=== PATIENT | female | born 1980 | race Caucasian/White ===

== ENCOUNTER 2017-12-05 20:02 | Emergency (ER) | payer BC, SELFPAY ==
[2017-12-05 20:10] VITALS: BP 132/75; PULSE 69; RESP 13; TEMP 37.1; O2SAT 100
[2017-12-05 20:16] VITALS: PULSE 93; RESP 13; O2SAT 100
--- NOTE | 2017-12-05 20:35 | DI.RAD_ITS ---
SYMPTOM/DIAGNOSIS: LEFT CHEST TIGHTNESS PA AND LATERAL CHEST: The heart is normal in size. The lungs are clear. The mediastinal structures and pleura appear intact. CONCLUSION: Normal chest.
--- NOTE | 2017-12-05 20:35 | W.ED.GENAD ---
Discharge Plan Disposition Patient Disposition: HOME Condition: Good Discharge Details Chief Complaint: Palpitatns Clinical Impression: RBBB, Chest pain, Anxiety Primary Care Provider: Lizett Juárez ED Provider: Willie Patel Home Meds and New Rx's Prescriptions: No Action ibuprofen 200 MG tablet 600 mg PO PRN PRNRF: 0 Discharge Instructions Instructions: Chest Pain (ED) Additional Instructions: Please follow-up with your primary care provider as soon as possible for reassessment. Please discuss with them your slightly elevated thyroid level. Please follow-up with your radiation oncologist. If you notice any worsening of your symptoms, or any new symptoms such as vomiting, diarrhea, fever, chills, shortness of breath, chest pain, numbness, weakness, or fainting , please return immediately to the emergency department for reevaluation. Please follow up with your primary care provider as soon as possible for reassessment and reevaluation. As always, it was a pleasure participating in your medical care today. Referrals: Lizett Juárez [Primary Care Provider] - Discharge Data Discharge Date/Time-TO BE ENTERED AT DEPARTURE: 12/05/17 23:10 Medical Decision Making This is a very pleasant 36-year-old female who presents for evaluation of mild palpitations, and then subsequent mild tightness in her chest. There is no pleuritic component. She has no red flags for pulmonary embolism. Her only cardiac risk factor is her father's family history, however she is extremely healthy, never smoked, shows no obesity, and has no other cardiac risk factors whatsoever. Physical exam demonstrates a very anxious young woman who is tearful, and shows notable anxiety. She denies any homicidal or suicidal ideations. Physical exam shows no other abnormalities. Laboratory workup is benign. Troponin is negative. TSH is slightly elevated at 5.83, which we have recommended that she follow-up with her primary care provider. EKG shows a right bundle branch block, negative for Scarbossa criterion, no evidence of ST elevations or depressions. The patient being very low risk for cardiac etiology, having a heart score less than 3, demonstrating no red flags or risk factors for pulmonary embolism, I feel that she is safe for discharge home. Her initial palpitations may have been secondary to exercise, or idiopathic. However I think her subsequent symptoms most likely brought on and worsened by an anxiety component. We did give a small dose of Ativan here, and this significantly improve the patient's disposition. After a long discussion and conversation with the patient and her , through shared decision making process I feel that she can be safely discharged home with close follow-up with her PCP. We have recommended outpatient follow-up for her right bundle branch block with cardiology, as well as her primary care provider. We discussed the importance of follow-up with counselors for anxiety treatment techniques. We discussed red flags which to return the patient understands. I have extensively reviewed the treatment plan and discharge instructions with the patient and their family. I have addressed all patient concerns at this time. The patient and family was made aware of what symptoms to monitor for that would warrant a return to the emergency department. Discussed the plan with the patient and family, they demonstrate verbal understanding and agreement with our assessment and plan at this time. EKG 20: 08 Rate 74, intervals normal, sinus rhythm with an incomplete right bundle branch block with an inverted T waves in V1 and V2, no ST elevations or depressions. No Q waves Chest x-ray per virtual radiology no acute cardiopulmonary process. HPI General Date/Time Provider Initiated Documentation: 12/05/17 20:34. HPI Narrative: This is a 36-year-old female with no past medical history except for who exercises regularly, performs regular marathons, presents today for chest pain. Patient states that she was running today when she developed mild palpitations for 1 minute while running, she subsequently developed very mild tightness in her chest and throat, she states that the more and more she dwelt upon it, the worse her symptoms got. She began to feel very anxious, overwhelmed, and thought she may . This entire episode lasted 3-4 minutes, she came with her to the hospital for further evaluation. She denies any pain in her arms or neck. She states that the symptoms eventually went away on their own. She denies any current pleuritic chest pain, shortness of breath, heaviness or weight on her chest, numbness, tingling, or weakness. Denies PE risk factors such as recent long car rides, immobilization, recent surgery, prior history of DVT or PE, family history of PE or DVT, morbid obesity, exogenous estrogen and smoking, hemoptysis, history of cancer. She denies any history of hypertension, high cholesterol, or diabetes. She has never smoked. She states that her father recently from a myocardial infarction this is been 1 of her main concerns. She states that she has had symptoms like this once in the past, became very anxious, he had worked up secondary to her fear of something concerning going on. She does have a known history of a right bundle branch block for which she has been seen and assessed by her PCP. She has no other complaints at this time. She denies any IV or illicit drug use. Related Data Home Medications Medication Instructions Recorded Confirmed ibuprofen 600 mg PO PRN PRN 05/16/15 12/05/17 Allergies Allergy/AdvReac Type Severity Reaction Status Date / Time Penicillins Allergy Unknown Unverified 12/05/17 20:14 Sulfa (Sulfonamide Allergy rash and Unverified 12/05/17 20:14 Antibiotics) tacycardia General Stated Complaint: Palpitatns PACO: 3 Review of Systems Review of Systems 10 point review of systems was performed, pertinent positives and negatives are noted in the history of present illness. REPLACED BY [facility] Social History Smoking/Tobacco Use Status: Never Exam Narrative Exam Narrative: 1.Const: Well-nourished, Well-developed, appearing stated age 2.Eyes: PERRL, no conjunctival injection, and symmetrical lids. 3.ENT: Atraumatic external nose and ears. Moist MM. Neck: Symmetric, trachea midline, No thyromegaly. 4.CVS: +S1/S2, No murmurs or gallops. Peripheral pulses 2+ and equal in all extremities. Brisk capillary refill in all extremities. 5.RESP: Unlabored respiratory effort. Clear to auscultation bilaterally. No wheezes rales or rhonchi 6.GI: Soft, Nontender/Nondistended, No hepatosplenomegaly. No guarding or rebound. 7.MSK: Normocephalic/Atraumatic, Extremities w/o deformity or ttp No cyanosis or clubbing, Normal movement of all extremities. No calf tenderness. 8.Skin: Warm, Dry. No rashes or lesions. 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 Sensation grossly intact, no focal neurologic deficits. 10.Psych: (AAO) x3. Appropriate mood and affect Course Vital Signs Temperature 37.1 C 12/05/17 20:10 Pulse 69 12/05/17 20:10 Respiratory Rate 13 12/05/17 20:10 Blood Pressure 132/75 12/05/17 20:10 Pulse Oximetry 100 12/05/17 20:10 Temperature 37.1 C 12/05/17 20:10 Temperature Source Skin 12/05/17 20:10 Pulse 69 12/05/17 20:10 Pulse 93 H 12/05/17 20:16 Respiratory Rate 13 12/05/17 20:16 Respiratory Effort 12/05/17 20:12 Blood Pressure 132/75 12/05/17 20:10 Pulse Oximetry 100 12/05/17 20:16 Oxygen Delivery Method Room Air 12/05/17 20:10 Oxygen Flow Rate 0 12/05/17 20:10 Pain Level 0 12/05/17 20:10
[2017-12-05] MEDS: LORazepam 2 MG/ML VIAL 0.5 MG IVP (20:52)
[2017-12-05] MEDS: Aspirin 81 MG CHEW 324 MG CH (20:52)
[2017-12-05 20:59] LABS: Abs Immature Grans 0.02 k/cumm (0.0-0.09); Absolute Basophil Count 0.06 k/cumm (0.0-0.2); Absolute Eosinophil Count 0.18 k/cumm (0.0-0.7); Absolute Lymphocyte Count 1.79 k/cumm (1.2-3.4); Absolute Monocyte Count 0.69 k/cumm (0.11-0.7); Absolute Neutrophil Count 6.66 k/cumm (1.2-6.7); Basophils % 0.6; Eosinophils % 1.9; HCT 36.6 % (36.0-46.0); HGB 12.4 g/dL (12.0-15.5); Immature Grans % 0.2; Mean Corp. HGB Concentration 33.9 g/dL (32.0-36.0); Mean Corpuscular Hemoglobin 28.7 pg (27.0-33.0); Mean Corpuscular Volume 84.7 fL (80-95); Mean Platelet Volume 10.4 fL (8.0-11.0); Monocytes % 7.3; Platelet Count 284 x1000/uL (130-400); RBC 4.32 m/cumm (4.00-5.20); RBC Distribution Width 12.6 % (11.7-14.6)
[2017-12-05 21:54] LABS: ALT 28 U/L (12-78); AST 19 U/L (15-37); Alkaline Phosphatase 82 U/L (46-116); Anion Gap 6.5 mmol/L (3-11); BUN 20 mg/dL (7-18); Bilirubin, Total 0.3 mg/dL (0.2-1.0); CO2 29.5 mmol/L (21.0-32.0); CREATININE 1.03 mg/dL (0.55-1.02); Chloride 105 mmol/L (98-107); Glucose 106 mg/dL (70-100); Potassium 4.3 mmol/L (3.5-5.1); Sodium 141 mmol/L (136-145); TSH 5.83 uIU/mL (0.358-3.74); Total Protein 6.8 g/dL (6.4-8.2)
[2017-12-05 21:56] LABS: Troponin I < 0.02 ng/mL (0.00-0.06)
--- NOTE | 2017-12-05 21:58 | DI.VRAD_ITS ---
EXAM: XR Chest, 2 Views CLINICAL HISTORY: 36 years old, female; Signs and symptoms; Shortness of breath TECHNIQUE: Frontal and lateral views of the chest. COMPARISON: CR CHEST 2 VIEWS PA,LAT 08/12/2016 3:34 AM FINDINGS: Lungs: Benign calcified granuloma, right lung base, versus benign right breast calcification. No airspace consolidation. Pleural space: No focal pathology. No pneumothorax. Heart: No focal pathology. No cardiomegaly. Mediastinum: Unremarkable. Bones/joints: Unremarkable. IMPRESSION: No acute cardiopulmonary pathology. Dictated and Authenticated by: Brianna Turcios MD. Ordering:JORDAN FISCHER MD
--- NOTE | 2017-12-06 01:00 | ED.GENADUL_ITS ---
Discharge Plan Disposition Patient Disposition: HOME Condition: Good Discharge Details Chief Complaint: Palpitatns Clinical Impression: RBBB, Chest pain, Anxiety Primary Care Provider: Lizett Juárez ED Provider: Willie Patel Home Meds and New Rx's Prescriptions: No Action ibuprofen 200 MG tablet 600 mg PO PRN PRNRF: 0 Discharge Instructions Instructions: Chest Pain (ED) Additional Instructions: Please follow-up with your primary care provider as soon as possible for reassessment. Please discuss with them your slightly elevated thyroid level. Please follow-up with your bladder changer. If you notice any worsening of your symptoms, or any new symptoms such as vomiting, diarrhea, fever, chills, shortness of breath, chest pain, numbness, weakness, or fainting , please return immediately to the emergency department for reevaluation. Please follow up with your primary care provider as soon as possible for reassessment and reevaluation. As always, it was a pleasure participating in your medical care today. Referrals: Lizett Juárez [Primary Care Provider] - Discharge Data Discharge Date/Time-TO BE ENTERED AT DEPARTURE: 12/05/17 23:10 Medical Decision Making This is a very pleasant 36-year-old female who presents for evaluation of mild palpitations, and then subsequent mild tightness in her chest. There is no pleuritic component. She has no red flags for pulmonary embolism. Her only cardiac risk factor is her father's family history, however she is extremely healthy, never smoked, shows no obesity, and has no other cardiac risk factors whatsoever. Physical exam demonstrates a very anxious young woman who is tearful, and shows notable anxiety. She denies any homicidal or suicidal ideations. Physical exam shows no other abnormalities. Laboratory workup is benign. Troponin is negative. TSH is slightly elevated at 5.83, which we have recommended that she follow-up with her primary care provider. EKG shows a right bundle branch block, negative for Scarbossa criterion, no evidence of ST elevations or depressions. The patient being very low risk for cardiac etiology, having a heart score less than 3, demonstrating no red flags or risk factors for pulmonary embolism, I feel that she is safe for discharge home. Her initial palpitations may have been secondary to exercise, or idiopathic. However I think her subsequent symptoms most likely brought on and worsened by an anxiety component. We did give a small dose of Ativan here, and this significantly improve the patient's disposition. After a long discussion and conversation with the patient and her , through shared decision making process I feel that she can be safely discharged home with close follow-up with her PCP. We have recommended outpatient follow-up for her right bundle branch block with cardiology, as well as her primary care provider. We discussed the importance of follow-up with counselors for anxiety treatment techniques. We discussed red flags which to return the patient understands. I have extensively reviewed the treatment plan and discharge instructions with the patient and their family. I have addressed all patient concerns at this time. The patient and family was made aware of what symptoms to monitor for that would warrant a return to the emergency department. Discussed the plan with the patient and family, they demonstrate verbal understanding and agreement with our assessment and plan at this time. EKG 20: 08 Rate 74, intervals normal, sinus rhythm with an incomplete right bundle branch block with an inverted T waves in V1 and V2, no ST elevations or depressions. No Q waves Chest x-ray per virtual radiology no acute cardiopulmonary process. HPI General Date/Time Provider Initiated Documentation: 12/05/17 20:34 . HPI Narrative: This is a 36-year-old female with no past medical history except for who exercises regularly, performs regular marathons , presents today for chest pain. Patient states that she was running today when she developed mild palpitations for 1 minute while running, she subsequently developed very mild tightness in her chest and throat, she states that the more and more she dwelt upon it, the worse her symptoms got. She began to feel very anxious, overwhelmed, and thought she may . This entire episode lasted 3-4 minutes, she came with her to the hospital for further evaluation. She denies any pain in her arms or neck. She states that the symptoms eventually went away on their own. She denies any current pleuritic chest pain, shortness of breath, heaviness or weight on her chest, numbness, tingling, or weakness. Denies PE risk factors such as recent long car rides, immobilization, recent surgery, prior history of DVT or PE, family history of PE or DVT, morbid obesity, exogenous estrogen and smoking, hemoptysis , history of cancer. She denies any history of hypertension, high cholesterol, or diabetes. She has never smoked. She states that her father recently from a myocardial infarction this is been 1 of her main concerns. She states that she has had symptoms like this once in the past, became very anxious , he had worked up secondary to her fear of something concerning going on. She does have a known history of a right bundle branch block for which she has been seen and assessed by her PCP. She has no other complaints at this time. She denies any IV or illicit drug use. Related Data Home Medications Medication Instructions Recorded Confirmed ibuprofen 600 mg PO PRN PRN 05/16/15 12/05/17 Allergies Allergy/AdvReac Type Severity Reaction Status Date / Time Penicillins Allergy Unknown Unverified 12/05/17 20:14 Sulfa (Sulfonamide Allergy rash and Unverified 12/05/17 20:14 Antibiotics) tacycardia General Stated Complaint: Palpitatns PACO: 3 Review of Systems Review of Systems 10 point review of systems was performed, pertinent positives and negatives are noted in the history of present illness. [facility] Social History Smoking/Tobacco Use Status: Never Exam Narrative Exam Narrative: 1.Const: Well-nourished, Well-developed, appearing stated age 2.Eyes: PERRL, no conjunctival injection, and symmetrical lids. 3.ENT: Atraumatic external nose and ears. Moist MM. Neck: Symmetric, trachea midline, No thyromegaly. 4.CVS: +S1/S2, No murmurs or gallops. Peripheral pulses 2+ and equal in all extremities. Brisk capillary refill in all extremities. 5.RESP: Unlabored respiratory effort. Clear to auscultation bilaterally. No wheezes rales or rhonchi 6.GI: Soft, Nontender/Nondistended, No hepatosplenomegaly. No guarding or rebound. 7.MSK: Normocephalic/Atraumatic, Extremities w/o deformity or ttp No cyanosis or clubbing, Normal movement of all extremities. No calf tenderness. 8.Skin: Warm, Dry. No rashes or lesions. 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 Sensation grossly intact, no focal neurologic deficits. 10.Psych: (AAO) x3. Appropriate mood and affect Course Vital Signs Temperature 37.1 C 12/05/17 20:10 Pulse 69 12/05/17 20:10 Respiratory Rate 13 12/05/17 20:10 Blood Pressure 132/75 12/05/17 20:10 Pulse Oximetry 100 12/05/17 20:10 Temperature 37.1 C 12/05/17 20:10 Temperature Source Skin 12/05/17 20:10 Pulse 69 12/05/17 20:10 Pulse 93 H 12/05/17 20:16 Respiratory Rate 13 12/05/17 20:16 Respiratory Effort 12/05/17 20:12 Blood Pressure 132/75 12/05/17 20:10 Pulse Oximetry 100 12/05/17 20:16 Oxygen Delivery Method Room Air 12/05/17 20:10 Oxygen Flow Rate 0 12/05/17 20:10 Pain Level 0 12/05/17 20:10
--- NOTE | 2017-12-06 14:24 | PDOC.ERCMPRO ---
Care Management Progress Note 12/06/17-Pt seen for chest pain and palpitations by Dr. Fermin Patel. Faxed f/u referral to Cardiology.
== END 2017-12-05 23:10 | disposition home or self-care (01) ==
PROVIDERS: Emergency Provider Student in an Organized Health Care Education/Training Program; PCP Family Medicine
DX: I45.10 Unspecified right bundle-branch block (principal); F41.9 Anxiety disorder, unspecified; R07.9 Chest pain, unspecified
CPT/HCPCS: 36415; 80053; 93005; 96374; 99285; 71046; 84443; 84484; 85025; 93010; 99284; J2060

== ENCOUNTER 2018-03-29 01:53 | Outpatient (CLI) | payer BC, SELFPAY | END 2018-03-29 02:13 | PROVIDERS: PCP Family Medicine; Visit Provider Student in an Organized Health Care Education/Training Program | DX: R00.2 Palpitations (principal) ==

== ENCOUNTER 2018-07-20 16:19 | Emergency (ER) | payer BC, SELFPAY ==
[2018-07-20 16:22] VITALS: BP 140/77; PULSE 66; RESP 20; TEMP 36.8; O2SAT 100
[2018-07-20 16:28] VITALS: RESP 20
--- NOTE | 2018-07-20 17:05 | W.ED.GENAD ---
Discharge Plan Disposition Patient Disposition: HOME Condition: Good Discharge Details Chief Complaint: Anxiety Clinical Impression: Atypical chest pain, Anxiety reaction Primary Care Provider: Lizett Juárez ED Provider: Alan Orourke Home Meds and New Rx's Prescriptions: No Action multivitamin Capsule 1 cap PO DAILY RF: 0 escitalopram oxalate [Lexapro] 5 mg Tablet 7.5 mg PO DAILY RF: 0 Discharge Instructions Instructions: Chest Pain (ED) Additional Instructions: Please return to the emergency department immediately develop shortness of breath increasing chest pain or other concern. Please see your primary care doctor this Sunday or Sunday for repeat evaluation and discussion of a cardiology follow-up. It was a pleasure to see the emergency department today Referrals: Lizett Juárez [Primary Care Provider] - Medical Decision Making 37-year-old female with a past medical history of anxiety on Lexapro and frequent panic attacks presents with atypical intermittent chest pain lasting seconds patient with a number of previous visits for similar complaints today patient physical exam history and physical consistent with an acute anxiety reaction as compared to an acute coronary syndrome or pulmonary embolus. Patient only ACS risk factor is family history of father who developed heart disease in his 50s. Patient PERC negative as well EKG unremarkable and unchanged from her previous tracings. Will defer further work-up in the emergency department and have patient follow-up with her primary care doctor early this week also recommend PRN cardiology follow-up after consultation with her primary care doctor discussed return instructions at length with patient who agrees to plan. ECG Data Attestation: I personally reviewed and interpreted this ECG (s) as follows: (Sinus rhythm with an incomplete bundle branch block normal axis no ectopy no ST elevation no ST depression normal intervals except for the for stated incomplete right bundle branch block unchanged from previously dated December 05, 2017.) HPI 37-year-old female past medical history of anxiety and depression presents with feeling of panic sharp chest pain that comes in waves that began while discussing the stress and insomnia in her life with her mother this afternoon. Episodes lasted only a few seconds. 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 No loss of consciousness no fever chills no trauma or other recent illness no mobilization no oral contraceptives or other exogenous estrogen. Patient only cardiac risk risk factor is a father with heart disease in his 50s. Patient seen a number of times in the past for similar complaints had a negative work-up with the exception of a partial right bundle branch block on EKG . Patient states that she has been having increasing anxiety over the last week after someone of heart disease of the [employer] run which made her worried about her running. No nausea vomiting diarrhea. General Date/Time Provider Initiated Documentation: 07/20/18 16:24. Related Data Home Medications Medication Instructions Recorded Confirmed escitalopram oxalate [Lexapro] 7.5 mg PO DAILY 07/20/18 07/20/18 multivitamin 1 cap PO DAILY 07/20/18 07/20/18 Allergies Allergy/AdvReac Type Severity Reaction Status Date / Time Penicillins Allergy Unknown Unverified 07/20/18 16:26 Sulfa (Sulfonamide Allergy rash and Unverified 07/20/18 16:26 Antibiotics) tacycardia General Stated Complaint: Anxiety PACO: 3 Review of Systems Review of Systems All systems reviewed & are unremarkable except as noted in HPI and below PFSH Social History Smoking/Tobacco Use Status: Never Alcohol Intake: current Alcohol Intake frequency: a few times a month Drug use: Never Substance use type: does not use Do you feel safe at home: Yes Do you feel safe in your relationship?: Yes Exam Narrative Exam Narrative: Pulse oximetry reviewed by me and is normal [] Constitutional: Pt is in no acute distress. he is well appearing. he oriented to person, place, and time. Eyes: conjunctivae are normal. Pupils are equal, round, and reactive to light. No scleral icterus. extraocular muscles are intact Ears/Nose/Mouth/Throat: mucus membranes are moist. Musculoskeletal: neck is supple. normal range of motion in all extremities. No peripheral edema Cardiovascular: Normal rate and rhythm. No lower extremity edema [] RRR Respiratory: effort is normal . pt exhibits no stridor or respiratory distress. [] Lungs clear to auscultation GastrointestinaI: abdomen soft, +BS, nontender, -rebound, -guarding. Neurological: alert and oriented to person, place, and time. he has normal strength, no tremor. Skin: Skin is warm and dry. he is not diaphoretic. Distal perfusion in tact, warm extremities, cap refill ? 2 seconds. Hem/Lymph/Imm: No cervical LAD, no goiter, no conjunctival pallor Psych: normal mood and affect. behavior is normal Triage and nurse notes reviewed.[] Course Vital Signs Temperature 36.8 C 07/20/18 16:22 Pulse 66 07/20/18 16:22 Respiratory Rate 20 07/20/18 16:22 Blood Pressure 140/77 07/20/18 16:22 Pulse Oximetry 100 07/20/18 16:22 Temperature 36.8 C 07/20/18 16:22 Temperature Source Temporal Artery Scan 07/20/18 16:22 Pulse 66 07/20/18 16:22 Respiratory Rate 20 07/20/18 16:28 Respiratory Effort Non-Labored 07/20/18 16:28 Respiratory Depth Normal 07/20/18 16:28 Respiratory Pattern Normal 07/20/18 16:28 Blood Pressure 140/77 07/20/18 16:22 Pulse Oximetry 100 07/20/18 16:22 Oxygen Delivery Method Room Air 07/20/18 16:22 Oxygen Flow Rate 0 07/20/18 16:22
== END 2018-07-20 18:04 | disposition home or self-care (01) ==
PROVIDERS: Emergency Provider Emergency Medicine; PCP Family Medicine
DX: R07.89 Other chest pain (principal); F41.1 Generalized anxiety disorder; R00.2 Palpitations
CPT/HCPCS: 93005; 99283; 93010

== ENCOUNTER 2020-07-15 01:55 | Outpatient (CLI) | payer BC, SELFPAY ==
--- NOTE | 2020-07-15 | DI.RAD_ITS ---
Exam(s) XR KNEE RT 3V AP,LAT,ABILIO EXAM: XR KNEE RT 3V AP,LAT,ABILIO CLINICAL HISTORY: INSTABILITY RT KNEE, M23.51,BILAT KNEE PAIN, M25.561,M25.562 TECHNIQUE: COMPARISON: No exams were available for comparison FINDINGS: Three views were obtained. The cartilaginous joint spaces appear fairly well maintained. There are slight marginal osteophytes present particularly at the medial tibiofemoral joint. No other bony abn ormality seen. No gross effusion identified on the lateral view. IMPRESSION: Mild DJD as described above RADIATION DOSE DELIVERED: Total DLP
--- NOTE | 2020-07-15 | DI.RAD_ITS ---
Exam(s) XR KNEE LT 3V AP,LAT,ABILIO EXAM: XR KNEE LT 3V AP,LAT,ABILIO CLINICAL HISTORY: BILAT KNEE PAIN, M25.561,M25.562 TECHNIQUE: COMPARISON: CR XR KNEE RT 3V AP,LAT,ABILIO from 07/15/2020 FINDINGS: Three views were obtained. The cartilaginous joint spaces appear fairly well maintained. No gross j oint effusion identified on the lateral view. No significant bony abnormality seen. IMPRESSION: Negative examination of the knee. RADIATION DOSE DELIVERED: Total DLP
--- NOTE | 2020-07-15 | DI.MRI_ITS ---
Exam(s) MR LOWER JOINT RT WO EXAM: MR LOWER JOINT RT WO CLINICAL HISTORY: RT KNEE SWELLING,BUCKLING,INSTABILITY,RT KNEE PAIN,M23.51,M23.561 TECHNIQUE: Multiplanar multisequence MRI was performed.. COMPARISON: No exams were available for comparison FINDINGS: MR examination of the knee was performed according to the usual protocol. There is a small knee joint effusion. No significant bony signal abnormality seen. Medial tibiofemoral joint: The articular cartilage of the femur and tibia appears well maintained. T he meniscus and attachments appear intact. The medial collateral ligament appears intact. 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 Lateral tibiofemoral joint: The articular cartilage of the femur and tibia appears well maintained ex cept for slight roughening of the central portion of the femoral articular cartilage.. The meniscus and attachments appear intact. The lateral collateral ligament complex and posterolateral corner str uctures appear intact. Patellofemoral joint and extensor mechanism: The articular cartilage of the patellofemoral joint is d iffusely thinned with focal areas of cartilage loss particularly inferiorly consistent with grade 3 c hondromalacia. There is moderate lateral patellar subluxation.. The superior and inferior patellar fat pads appear mostly intact with minimal peripatellar edema of the infrapatellar fat pad, particula rly laterally.. The quadriceps tendon and patellar tendon appear intact with no evidence of a tear or significant alexis ma. The medial and lateral retinacula appear intact. Cruciate ligaments: Cruciate ligaments and attachments appear normal with no evidence of a tear. Tibiofibular joint: No specific abnormality involving the tibiofibular joint. IMPRESSION: Significant articular cartilage loss of the patella at the patellofemoral joint, particularly involvi ng the lateral an inferior portions of the patella. There is lateral patellar subluxation. Slight f emoral trochlear cartilage thinning also noted. DATA REPOSITORY:
== END 2020-07-15 02:15 ==
PROVIDERS: PCP Family Medicine; Visit Provider Family Medicine
DX: M25.561 Pain in right knee (principal); M23.51 Chronic instability of knee, right knee; M25.461 Effusion, right knee; M22.41 Chondromalacia patellae, right knee; M25.562 Pain in left knee
CPT/HCPCS: 73562; 73721

== ENCOUNTER 2020-09-08 00:31 | Emergency (ER) | payer BC, SELFPAY ==
--- NOTE | 2020-09-08 00:30 | RT.EKG_ITS ---
APPROVED REPORT Exam: Resting ECG Reason for Exam: heart issue Patient Location: E HR:87 bpm ECG Measurements Heart Rate 87 AXIS IA 164 P 40 QRSd 109 QRS 64 QT 347 T 49 QTc 417 Conclusion Sinus rhythm...normal P axis, V-rate 60- 99
[2020-09-08 00:36] VITALS: BP 120/65; PULSE 87; RESP 18; TEMP 36.6; O2SAT 98
[2020-09-08 00:45] VITALS: RESP 18
--- NOTE | 2020-09-08 00:58 | W.ED.GENAD ---
Discharge Plan Disposition Patient Disposition: HOME Condition: Improving Discharge Details Clinical Impression: Anxiety Primary Care Provider: Lizett Juárez ED Provider: Wilmer Ruelas Home Meds and New Rx's Prescriptions: Continued multivitamin Capsule 1 cap PO DAILY RF: 0 Discharge Instructions Instructions: Anxiety (ED) Additional Instructions: Home to rest this evening. You may try the provided Ativan 1 tablet at bedtime. No alcohol or driving when taking Ativan. Please follow-up with Dr. Lizett Juárez in [place] for recheck in the next 7 to 10 days time. Return to the ER for any acute concerns. 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 She also had some stress with the medical illness of the child at home. She also recently tapered her self off of SSRI approximately 6 weeks ago. Now with ongoing stress and anxiety with panic this evening. Denies chest pain or pressure. She had screening EKG performed which is unremarkable. As it is 1 AM and no rides available to safely transport the patient home, she will be given 0.5 mg Ativan to be taken at home as needed x1 with 1 additional tablet. She will follow-up with Dr. Juárez in [place] for recheck. HPI General Mode of arrival: ambulatory. Date/Time Provider Initiated Documentation: 09/08/20 00:47. Limitations to Documentation: no limitations. History of Present Illness 39 year old F presents to the emergency department with the chief complaint of Anxiety, described as moderate, and is localized to the head. Patient reports no radiation. Patient started experiencing this day(s) and it has been intermittent. No relieving factors improve symptom(s), No exacerbating factors reported . Patient notes denies chest pain, cough, shortness of breath and syncope. Patient did receive the following treatments prior to arrival, none Related Data Home Medications Medication Instructions Recorded Confirmed multivitamin 1 cap PO DAILY 07/20/18 09/08/20 Allergies Allergy/AdvReac Type Severity Reaction Status Date / Time Penicillins Allergy Unknown Unverified 09/08/20 00:42 Sulfa (Sulfonamide Allergy rash and Unverified 09/08/20 00:42 Antibiotics) tacycardia General Stated Complaint: Anxiety PACO: 3 Review of Systems Narrative: Increased stress at home and at work. Child recently diagnosed with diabetes. Some poor sleep at times. No thoughts of harming herself or others. 6 systems reviewed and otherwise negative [facility] Social History Smoking/Tobacco Use Status: Never Smoking risk assessment performed?: Yes Alcohol Intake: current Alcohol Intake frequency: a few times a month Drug use: Never Substance use type: does not use Do you feel safe at home: Yes Do you feel safe in your relationship?: Yes Exam Narrative Exam Narrative: GEN: awake, alert, oriented 3. Pleasant, well groomed, interactive. HEAD: Normocephalic, atraumatic ENT: Mucous membranes moist, oropharynx unremarkable, External ear exam unremarkable EYES: PERRL, EOMI NECK: Full ROM, no EDIE, no menigismus CHEST/RESP: Nontender, clear to auscultation bilateral, no wheeze/rhonchi/rales CARDIOVASCULAR: RRR, no murmur, rub flower. 2+ Rad pulse bilateral ABDOMEN: Soft, nontender, no mass. +Bowel sounds EXT: Full ROM, no edema, no rash Neuro: Grossly normal neurologic exam, conversant, interactive. Psych: Speech fluent, thoughts congruent, affect anxious Course Vital Signs Vital signs: Vital Signs Temperature 36.6 C 09/08/20 00:36 Pulse 87 09/08/20 00:36 Respiratory Rate 18 09/08/20 00:36 Blood Pressure 120/65 09/08/20 00:36 Pulse Oximetry 98 09/08/20 00:36 Temperature 36.6 C 09/08/20 00:36 Temperature Source Temporal Artery Scan 09/08/20 00:36 Pulse 87 09/08/20 00:36 Respiratory Rate 18 09/08/20 00:45 Respiratory Effort 09/08/20 00:45 Respiratory Depth Normal 09/08/20 00:45 Respiratory Pattern Normal 09/08/20 00:45 Blood Pressure 120/65 09/08/20 00:36 Blood Pressure Position Sitting 09/08/20 00:36 Pulse Oximetry 98 09/08/20 00:36 Pain Level 0 09/08/20 00:36
[2020-09-08] MEDS: LORazepam 0.5 MG TAB PO (01:00)
== END 2020-09-08 01:05 | disposition home or self-care (01) ==
PROVIDERS: Emergency Provider Emergency Medicine; PCP Family Medicine
DX: F41.9 Anxiety disorder, unspecified (principal)
CPT/HCPCS: 93005; 99283; 93010

== ENCOUNTER 2023-04-02 21:30 | Emergency (ER) | payer BC, SELFPAY ==
[2023-04-02] VITALS (7 sets, daily range): BP systolic 155; BP diastolic 83; PULSE 71–92; RESP 10–16; TEMP 37; O2SAT 99–100
--- NOTE | 2023-04-02 21:30 | RT.EKG_ITS ---
APPROVED REPORT Exam: Resting ECG Reason for Exam: palpitations Patient Location: E HR:81 bpm ECG Measurements Heart Rate 81 AXIS NC 154 P 47 QRSd 111 QRS 40 QT 370 T 50 QTc 430 Conclusion Sinus rhythm..V-rate 60- [address] segment or T wave abnormalities to suggest occlusive [place]
--- NOTE | 2023-04-02 22:14 | ED.GENADUL_ITS ---
HPI General Mode of arrival: ambulatory . Date/Time Provider Initiated Documentation: 04/02/23 21:42 . Limitations to Documentation: no limitations . Information obtained by: patient and family . HPI Narrative: 42yo previously healthy female presenting for palpitations x 1 week. Has intermittently been having a sensation of a 'extra beats' associated with a sensation of warmth and tingling in her whole body. Sometimes has left arm and shoulder soreness when this occurs, as well as some shortness of breath. Has been intermittent over the past week, today more frequent and lasting for longer, up to several minutes at a time. Has also has some GI distress over the past day, looser more frequent stool though still formed. Non bloody. Mild nausea which is not uncommon for her, no vomiting. She has felt more anxious lately, does have a history of anxiety. Multiple recent stressors including MILAD passing away and putting down her 1 year old dog. She is otherwise in her usual state of health with no fevers, chills, rash, abdominal pain, dysuria, hematuria, focal weakness, numbness, or other concerns. Related Data Home Medications Medication Instructions Recorded Confirmed multivitamin 1 cap PO DAILY 07/20/18 09/08/20 Allergies Allergy/AdvReac Type Severity Reaction Status Date / Time Penicillins Allergy Unknown Unverified 09/08/20 00:42 Sulfa (Sulfonamide Allergy rash and Unverified 09/08/20 00:42 Antibiotics) tacycardia General Stated Complaint: Palpitatns PACO: 3 Review of Systems Narrative: see HPI Exam Narrative Exam Narrative: General: Alert, well appearing, well nourished, anxious Head: Normocephalic, atraumatic Neck: Trachea midline, ?Neck supple. ENT: ?MMM.? Cardiac: ?RRR, no murmurs appreciated Resp: No respiratory distress. CTAB. Abd: ?Soft, non-distended, nontender : ?No suprapubic tenderness. Extremities: ?No deformities.? No peripheral edema. Neurologic: GCS 15. ? Moves all extremities freely against gravity Course Vital Signs Vital signs: Vital Signs Temperature 37.0 C 04/02/23 21:38 Pulse 92 H 04/02/23 21:38 Respiratory Rate 16 04/02/23 21:38 Blood Pressure 155/83 H 04/02/23 21:38 Pulse Oximetry 100 04/02/23 21:38 Temperature 37.0 C 04/02/23 21:38 Temperature Source Temporal Artery Scan 04/02/23 21:38 Pulse 92 H 04/02/23 21:38 Respiratory Rate 16 04/02/23 21:38 Blood Pressure 155/83 H 04/02/23 21:38 Blood Pressure Position Supine 04/02/23 21:38 Pulse Oximetry 100 04/02/23 21:38 Oxygen Delivery Method Room Air 04/02/23 21:38 Oxygen Flow Rate 0 04/02/23 21:38 Medical Decision Making 42yo previously healthy female presenting for palpitations x 1 week. Has intermittently been having a sensation of a 'extra beats' associated with a sensation of warmth and tingling in her whole body as well as mild shortness of breath and left shoulder soreness. Looser stools but no diarrhea. Otherwise in her usual state of health. Father in his 50's from a heart attack. Vital signs reassuring on arrival, HR 82 and slightly hypertensive at 155/83. Benign physical exam, well appearing. EKG NSR, appropriate intervals, no ST segment or T wave abnormalities to suggest occlusive. Plan for labs, troponin, dimer. Patient became tearful when d-dimer/screening for blood clots was discussed, reported significant anxiety. Labs reviewed as below, CBC normal with no leukocytosis or anemia, CMP reassuring with no significant electrolyte abnormalities (K borderline at 3.4, unlikely to be related to pts symptoms), d- dimer normal ( would not further pursue pulmonary embolism with CT imaging), troponin negative x 2 ( would not further pursue ACS). Telemetry while in the ED reasuring. On reassessment she remains well appearing wtih reassuring vital signs. HEART score 1-2 for risk factors (family history, obesity, ?HTN); low risk. Advised to followup with PCP for possible hypertension. Discharged home; discharge instructions and return precautions were reviewed with patient who verbalized understanding. All questions were answered and she is in full agreement with the plan. Lab Data Lab results reviewed: Yes I reviewed the patient's lab results. Labs: Laboratory Tests Range/Units 04/02/23 04/03/23 22:25 01:30 WBC (4.4-10.8) 10^3/uL 10.15 RBC (3.93-5.22) 10^6/uL 4.89 Hgb (11.2-15.7) g/dL 13.6 Hct (36.0-46.0) % 39.7 MCV (80-95) fL 81 MCH (27.0-33.0) pg 27.8 MCHC (32.0-36.0) % 34.3 RDW (11.7-14.6) % 12.0 Plt Count (130-400) 10^3/uL 337 MPV (8.0-11.0) fL 9.2 Immature Gran % 0.7 Neutrophils % 64.2 Lymphocytes % 25.5 Monocytes % 7.1 Eosinophils % 1.5 Basophils % 1.0 Nucleated RBC % (0.0-0.3) % 0.0 Absolute Neutrophils (1.2-6.7) 10^3/uL 6.52 Absolute Lymphocytes (1.2-3.4) 10^3/uL 2.59 Absolute Monocytes (0.1-0.8) 10^3/uL 0.72 Absolute Eosinophils (0.0-0.7) 10^3/uL 0.15 Absolute Basophils (0.0-0.2) 10^3/uL 0.10 D-Dimer (<500) ng/mlFEU 120 Sodium (136-145) mmol/L 140 Potassium (3.5-5.1) mmol/L 3.4 L Chloride (98-107) mmol/L 103 Carbon Dioxide (21.0-32.0) mmol/L 24.3 Anion Gap (3-11) mmol/L 12.7 H BUN (7-18) mg/dL 15 Creatinine (0.55-1.02) mg/dL 0.8 Est GFR (CKD-EPI 2020) (mL/min/1.73m2) 94.87 Glucose (74-106) mg/dL 101 Calcium (8.5-10.1) mg/dL 9.4 Magnesium (1.8-2.4) mg/dL 1.8 Total Bilirubin (0.2-1.0) mg/dL 0.4 AST (15-37) U/L 11 L ALT (14-59) U/L 18 Alkaline Phosphatase (46-116) U/L 74 Troponin I (< or =60) ng/L < 50 < 50 Total Protein (6.4-8.2) g/dL 7.2 Albumin (3.4-5.0) g/dL 4.2 TSH (0.36-3.74) uIU/mL 4.93 H Free T4 (0.76-1.46) ng/dL 0.89 Quality:SDOH Health Related Social Needs: No Data to Display PFSH All Active Problems (Updated 04/02/23 @ 23:47 by Lizett Graves MD) Heart palpitations (Acute) Anxiety (Chronic) Social History Smoking/Tobacco Use Status: Never Smoking risk assessment performed?: Yes Alcohol Intake: current Alcohol Intake frequency: a few times a month Drug use: Never Substance use type: does not use Do you feel safe at home: Yes Do you feel safe in your relationship?: Yes Discharge Plan Disposition Patient Disposition: Home Condition: Good Discharge Details Clinical Impression: Heart palpitations Primary Care Provider: Lizett Juárez ED Provider: Lizett Graves Home Meds and New Rx's Prescriptions: Continued multivitamin Capsule 1 cap PO DAILY Discharge Instructions Instructions: Heart Palpitations (ED) Additional Instructions: Call your primary care doctor today to schedule an appointment within one week to follow up on your visit today. Return to the emergency department for new or worsening symptoms. Referrals: Lizett Juárez [Primary Care Provider] -
[2023-04-02 22:37] LABS: Abs Immature Grans 0.07 10^3/uL (0.0-0.06); Absolute Eosinophil Count 0.15 10^3/uL (0.0-0.7); Absolute Lymphocyte Count 2.59 10^3/uL (1.2-3.4); Absolute Monocyte Count 0.72 10^3/uL (0.1-0.8); Absolute Neutrophil Count 6.52 10^3/uL (1.2-6.7); Eosinophils % 1.5; HCT 39.7 % (36.0-46.0); HGB 13.6 g/dL (11.2-15.7); Immature Grans % 0.7; Lymphocytes % 25.5; MCH 27.8 pg (27.0-33.0); MCHC 34.3 % (32.0-36.0); MCV 81 fL (80-95); MPV 9.2 fL (8.0-11.0); Monocytes % 7.1; Neutrophils % 64.2; Platelet Count 337 10^3/uL (130-400); RBC 4.89 10^6/uL (3.93-5.22); RDW-SD 35.6 fL; WBC 10.15 10^3/uL (4.4-10.8)
[2023-04-02 23:06] LABS: ALT 18 U/L (14-59); AST 11 U/L (15-37); Albumin 4.2 g/dL (3.4-5.0); Alkaline Phosphatase 74 U/L (46-116); Anion Gap 12.7 mmol/L (3-11); BUN 15 mg/dL (7-18); Bilirubin, Total 0.4 mg/dL (0.2-1.0); CO2 24.3 mmol/L (21.0-32.0); CREATININE 0.8 mg/dL (0.55-1.02); Calcium 9.4 mg/dL (8.5-10.1); Chloride 103 mmol/L (98-107); Estimated GFR 94.87 (mL/min/1.73m2); Glucose 101 mg/dL (74-106); Magnesium 1.8 mg/dL (1.8-2.4); Potassium 3.4 mmol/L (3.5-5.1); Sodium 140 mmol/L (136-145); TSH (W/Ref FT4) 4.93 uIU/mL (0.36-3.74); Total Protein 7.2 g/dL (6.4-8.2); Troponin I < 50 ng/L (< or =60)
[2023-04-02 23:19] LABS: D-Dimer 120 ng/mlFEU (<500)
[2023-04-02 23:24] LABS: FREE T4 0.89 ng/dL (0.76-1.46)
[2023-04-03 01:54] LABS: Troponin I < 50 ng/L (< or =60)
[2023-04-03 02:12] VITALS: BP 114/66; PULSE 78; RESP 13; O2SAT 99
== END 2023-04-03 02:13 | disposition home or self-care (01) ==
PROVIDERS: Emergency Provider Student in an Organized Health Care Education/Training Program; PCP Family Medicine
DX: R00.2 Palpitations (principal); F41.9 Anxiety disorder, unspecified; Z82.49 Family history of ischemic heart disease and other diseases of the circulatory system
CPT/HCPCS: 36415; 80053; 93005; 99284; 83735; 84439; 84443; 84484; 85025; 85379; 93010